=== PATIENT | male | born 1970 | race Two or more races ===

== ENCOUNTER 2024-02-16 06:06 | Emergency (ER) | payer OTHER ==
[~2024-02-16] VITALS: Ht 188 cm; Wt 106.6 kg
[2024-02-16] MEDS ORDERED: SIMVASTATIN5 MG (06:10)
[2024-02-16] MEDS ORDERED: AMLODIPINE-OLM1 EAC2 PO (06:10)
[2024-02-16] MEDS ORDERED: VALSARTAN4 MG/1 ML (06:10)
[2024-02-16] MEDS ORDERED: OxyCODONE HCL/APAP UD (PERCOCET) PO STA (06:26)
[2024-02-16] MEDS ORDERED: KETOROLAC TROMETHAMINE 60 MG VIAL IM STA (06:26)
== END 2024-02-16 08:11 | disposition home or self-care (01) ==
LOC: ER 06:08
DX: S52.502A Unspecified fracture of the lower end of left radius, initial encounter for closed fracture (principal); S52.612A Displaced fracture of left ulna styloid process, initial encounter for closed fracture; W18.39XA Other fall on same level, initial encounter; Y93.89 Activity, other specified; Y92.012 Bathroom of single-family (private) house as the place of occurrence of the external cause; Y99.9 Unspecified external cause status

== ENCOUNTER 2024-02-19 09:22 | Outpatient (CLI) | payer OTHER ==
[~2024-02-19 09:22] MED LIST: AMLODIPINE-OLM1 EAC2 PO; SIMVASTATIN5 MG; VALSARTAN4 MG/1 ML
== END 2024-02-19 09:26 | disposition home or self-care (01) ==
LOC: RAD 09:22
PROVIDERS: ATTEND Orthopaedic Surgery
DX: M25.531 Pain in right wrist (principal); M25.532 Pain in left wrist

== ENCOUNTER 2024-02-19 09:41 | Outpatient (CLI) | payer OTHER ==
[2024-02-19 10:19] LABS: HEMATOCRIT 44.3 % (39.0-48.0); HEMOGLOBIN 15.4 g/dL (13-16.00); MEAN CELL VOLUME 91.7 fL (80.0-100.00); MEAN CORPUSCULAR HEMOGLOBIN 31.9 pg (27.00-32.0); MEAN CORPUSCULAR HGB CONC 34.7 g/dl (32.0-36.0); PLATELET COUNT 221 K/uL (150-450); RED BLOOD COUNT 4.83 M/uL (4.00-6.00); RED CELL DISTRIBUTION WIDTH 13.2 % (11.5-14.5)
[2024-02-19 10:34] LABS: URINE APPEARANCE Clear; URINE BILIRRUBIN Negative (NEGATIVE); URINE BLOOD Negative; URINE COLOR Dark Yellow; URINE GLUCOSE Negative (NEGATIVE); URINE KETONE Trace (NEGATIVE); URINE LEUKOCYTE Negative; URINE NITRATE Negative; URINE PROTEIN Negative (NEGATIVE); URINE UROBILINOGEN 0.2 E.U./dl
[2024-02-19 10:36] LABS: URINE BACTERIA 25.1 uL (0.0-1933); URINE EPITHELIAL CELLS 1.5 uL (0.0-38.8); URINE WBC 3.5 uL (0.0-23.2)
[2024-02-19 10:48] LABS: URINE CAST 0.45 uL (0.0-1.40)
[2024-02-19 10:50] LABS: INR 1.05; PARTIAL THROMBOPLASTIN TIME 26.2 SECONDS (22.0-34.0); PROTHROMBIN TIME 11.4 SECONDS (9.0-11.5)
[2024-02-19 11:07] LABS: COL EPI 110 SECONDS (82-175)
[2024-02-19 11:24] LABS: ALBUMIN 4.1 gm/dL (3.4-5.0); BILIRUBIN TOTAL 0.58 mg/dL (0.3-1.2); CALCIUM 9.7 mg/dL (8.5-10.1); CREATININE SERUM 1.02 mg/dL (0.70-1.30); GFR 75.82; GLOBULINA 3.1 G/DL (2.4-3.5); POTASSIUM 3.81 mEq/L (3.5-5.1); TOTAL PROTEIN 7.2 gm/dL (6.4-8.2)
== END 2024-02-19 09:42 | disposition home or self-care (01) ==
LOC: LAB 09:41
PROVIDERS: ATTEND Orthopaedic Surgery
DX: D64.9 Anemia, unspecified (principal); E88.89 Other specified metabolic disorders; D68.8 Other specified coagulation defects; N39.0 Urinary tract infection, site not specified; Z22.322 Carrier or suspected carrier of Methicillin resistant Staphylococcus aureus; I10 Essential (primary) hypertension

== ENCOUNTER 2024-02-20 09:18 | Outpatient (CLI) | payer OTHER | END 2024-02-20 09:24 | disposition home or self-care (01) | LOC: RAD 09:18 | PROVIDERS: ATTEND Orthopaedic Surgery | DX: Z76.89 Persons encountering health services in other specified circumstances (principal); M25.531 Pain in right wrist; M25.532 Pain in left wrist ==